=== PATIENT | male | born 1980 | race African-American/Black ===

== ENCOUNTER 2019-06-01 12:39 | Emergency (ER) | payer MEDICAID, MEDICARE ==
[~2019-06-01] VITALS: Ht 182.9 cm; Wt 90.0 kg
[2019-06-01] MEDS ORDERED: IBUPROFEN 800MG TABLET PO NR (15:14)
[2019-06-01] MEDS ORDERED: IBUPROFEN 800MG TABLET ONE (16:42)
[2019-06-01 17:28] VITALS: BP 132/82
[2019-06-01] MEDS ORDERED: BACITRACIN 15GM TUBE TOP STA (21:40)
== END 2019-06-01 17:33 | disposition home or self-care (01) ==
LOC: ER 12:39
DX: M79.641 Pain in right hand (principal); R51 Headache; R42 Dizziness and giddiness
CPT/HCPCS: 73130; 99284